=== PATIENT | male | born 1950 | race Caucasian/White ===

== ENCOUNTER 2021-11-27 16:58 | Emergency (ER) | payer MEDICAID ==
[~2021-11-27] VITALS: Ht 177.8 cm; Wt 72.6 kg
--- NOTE | 2021-11-27 18:47 | NUR ---
Patient ambulatory, alert and orientedx4 complaints of left rib pain. Denies nausea/vomiting, chest pain. Vitals stable.
--- NOTE | 2021-11-27 19:03 | NUR ---
Patient left without being seen. Patient left with stable vitals and steady gait. Patient refused to wait and wants to go to different hospital. Patient not in any form of distress.
== END 2021-11-27 19:05 | disposition left against medical advice (07) ==
LOC: ER 17:01
DX: Z53.21 Procedure and treatment not carried out due to patient leaving prior to being seen by health care provider (principal)

== ENCOUNTER 2023-02-14 03:59 | Emergency (ER) | payer SELFPAY ==
[~2023-02-14] VITALS: Ht 175.3 cm; Wt 72.6 kg
[2023-02-14 05:02] VITALS: BP 138/72; TEMP 98.5; O2SAT 98
== END 2023-02-14 05:03 | disposition home or self-care (01) ==
LOC: ER 04:03
DX: Z00.00 Encounter for general adult medical examination without abnormal findings (principal); R44.3 Hallucinations, unspecified
CPT/HCPCS: A4663